=== PATIENT | male | born 1955 | race Two or more races ===

== ENCOUNTER 2019-07-30 10:53 | Outpatient (CLI) | payer OTHER | END 2019-07-30 10:59 | disposition home or self-care (01) | LOC: SONOGRAMA 10:53 | DX: M12.871 Other specific arthropathies, not elsewhere classified, right ankle and foot (principal); M71.21 Synovial cyst of popliteal space [Baker], right knee ==

== ENCOUNTER → 2022-07-23 08:00 | Outpatient (CLI) | payer OTHER ==
[~2022-07-23] VITALS: Ht 165.1 cm; Wt 82.1 kg
[~2022-07-23 08:00] MED LIST: COZAAR100 MG PO; GRALISE600 MG PO; METFORMIN HCL850 M1 PO; ZETIA10 MG PO; ZOCOR20 MG PO
== END | disposition home or self-care (01) ==
LOC: ADM 07-20 11:45 → EDSTATUS 07-20 11:45 → LAB 08:00 → EDSTATUS 07-24 11:45 → SURG 07-24 11:45
PROVIDERS: ATTEND Orthopaedic Surgery
DX: M17.11 Unilateral primary osteoarthritis, right knee (principal)